=== PATIENT | female | born 1955 | race Caucasian/White ===

== ENCOUNTER 2018-02-03 14:05 | Outpatient (CLI) | payer SELFPAY ==
--- NOTE | 2018-02-03 16:21 | RAD ---
LEFT HUMERUS TWO VIEWS: HISTORY: Humerus pain. FINDINGS: There are no signs of fracture or dislocation. There is calcification in the region of the rotator c uff, consistent with hydroxyapatite deposition. This could be sequela of previous episodes of calcif ic tendinitis. IMPRESSION: Calcium deposition with the rotator cuff. POS: HERMINIA
--- NOTE | 2018-02-03 16:23 | RAD ---
LEFT SHOULDER THREE VIEWS: HISTORY: Left shoulder pain x5 months. FINDINGS: There is calcification in the region of the greater tuberosity, consistent with calcification or ossi fication related to the rotator cuff tendons, consistent with hydroxyapatite deposition. Changes cirilo ear fairly chronic in nature and could be related to old episodes of calcific tendinitis. Clinical c orrelation as to whether the patient has acute symptomatology is suggested. IMPRESSION: 1. Calcification in the region of the rotator cuff, as discussed above. 2. Incidental note is made of what appears to be cardiomegaly. POS: JEFFERY
== END 2018-02-03 14:06 | disposition home or self-care (01) ==
LOC: SCSRAD 14:05
PROVIDERS: ATTEND Family Medicine
DX: M79.602 Pain in left arm (principal); M75.32 Calcific tendinitis of left shoulder